=== PATIENT | female | born 1935 | race African-American/Black ===

== ENCOUNTER 2021-11-13 19:51 | Emergency (ER) | payer MEDICARE ==
[~2021-11-13] VITALS: Ht 162.6 cm; Wt 62.0 kg
[2021-11-13] MEDS ORDERED: METHYLPREDNISOLONE SOD SUCC 125 MG/2 ML VIAL IV STA (20:50)
[2021-11-13] MEDS ORDERED: MAGNESIUM 2 G PREMIX 50 ML IV ONE (21:00)
[2021-11-13 21:36] LABS: HEMATOCRIT. 39.8 % (36.0-48.0); HEMOGLOBIN. 12.5 g/dL (12.0-16.0); MEAN CORPUSCULAR HEMOGLOBIN 28.7 pg (28.0-32.0); MEAN CORPUSCULAR VOLUME 91.5 fL (81.0-99.0); MEAN PLATELET VOLUME 8.9 fl (7.4-10.4); PLATELET 189 x1000/uL (130-400); RED BLOOD CELL COUNT 4.35 mill/uL (4.2-5.4); RED CELL DISTRIBUTION WIDTH 15.7 % (11.6-14.6)
[2021-11-13 21:44] LABS: CHLORIDE 105 mEq/L (98-107)
[2021-11-13 22:12] LABS: PLATELET ESTIMATE NORMAL
[2021-11-13] MEDS ORDERED: P50 MT (23:01)
[2021-11-13] MEDS ORDERED: ALBU6.7H9 INH (23:02)
[2021-11-14 00:15] VITALS: BP 166/88
== END 2021-11-14 00:19 | disposition home or self-care (01) ==
LOC: ER 19:51
DX: J45.901 Unspecified asthma with (acute) exacerbation (principal)
CPT/HCPCS: 36415; 71045; 80053; 83880; 84484; 85025; 93005; 96365; 96375; 99285; J2930; J3475